=== PATIENT | male | born 1945 | race Caucasian/White ===

== ENCOUNTER 2017-05-26 20:43 | Inpatient (IN) | payer OTHER ==
[~2017-05-26] VITALS: Ht 160 cm; Wt 63.8 kg
[2017-05-26 22:11] LABS: Basophils # (auto) 0.1 uL; Basophils % (auto) 0.5 % (0.0-2.0); Eosinophils # (auto) 0.1 uL; Eosinophils % (auto) 1.3 % (0.0-7.0); Hematocrit 47.7 % (41.0-53.0); Hemoglobin 16.2 g/dL (13.5-17.5); Lymphocytes # (auto) 2.6 uL; Lymphocytes % (auto) 24.6 % (10.0-50.0); Mean Corpuscular Hemoglobin 31.2 pg (28.0-32.0); Monocytes # (auto) 0.6 uL; Monocytes % (auto) 5.6 % (0.0-12.0); Neutrophils # (auto) 7.1 uL; Platelet Count (auto) 279 10^3/uL (140-450); Red Blood Cells 5.18 10^6/uL (4.5-5.90); Red Cell Distribution Width 13.7 % (11.8-14.3); White Blood Cell 10.4 10^3/uL (4.4-10.8)
[2017-05-26 22:27] LABS: Alanine Aminotransferase 207 U/L (16-61); Albumin 3.5 g/dL (3.4-5.0); Alkaline Phosphatase 54 U/L (45-117); Anion Gap 7 (5-15); Aspartate Aminotransferase 143 U/L (15-37); BUN/Creatinine Ratio 19.6; Bilirubin, Total 0.5 mg/dL (0.2-1.0); Blood Alcohol < 3.0 mg/dL (0-5); Blood Urea Nitrogen 22 mg/dL (7-18); Calcium 8.8 mg/dL (8.5-10.1); Carbon Dioxide 25 mmol/L (21-32); Chloride 108 mmol/L (98-107); GFR African American 84 mL/min; GFR Non-African American 69 mL/min; Glucose 86 mg/dL (74-106); Potassium 4.4 mmol/L (3.5-5.1); Sodium 140 mmol/L (136-145); Total Protein 8.5 g/dL (6.4-8.2)
[2017-05-27] VITALS (8 sets, daily range): BP systolic 97–159; BP diastolic 59–80
[2017-05-27] MEDS ORDERED: WARFARIN SODIUM 5 MG TAB PO ONE
[2017-05-27 09:08] LABS: INR 2.08 (0.9-1.15); Partial Thromboplastin Time 38.5 sec (22.64-33.71); Prothrombin Time 22.8 sec (9.37-12.3)
[2017-05-27] MEDS ORDERED: LORazepam 2MG/ML-1ML VIAL IV PRN (09:30)
[2017-05-27] MEDS: CARVEDILOL 3.125 MG TAB PO SCH ×2 (09:47→22:36)
[2017-05-27] MEDS: LISINOPRIL 10 MG TAB PO SCH (09:48)
[2017-05-27] MEDS: LEVETIRACETAM 500 MG TAB PO SCH ×2 (10:03→22:36)
[2017-05-27] MEDS ORDERED: WARFARIN SODIUM 5 MG TAB PO SCH (17:00)
[2017-05-28 05:23] VITALS: BP 107/72
[2017-05-28 06:58] LABS: INR 2.08 (0.9-1.15); Partial Thromboplastin Time 30.5 sec (22.64-33.71); Prothrombin Time 22.8 sec (9.37-12.3)
[2017-05-28 09:00] VITALS: BP 115/70
[2017-05-28] MEDS: LEVETIRACETAM 500 MG TAB PO SCH ×2 (10:44→23:01)
[2017-05-28] MEDS: APIXABAN 5 MG TAB PO SCH ×2 (10:45→23:01)
[2017-05-28] MEDS: CARVEDILOL 3.125 MG TAB PO SCH ×2 (10:45→23:01)
[2017-05-28] MEDS: LISINOPRIL 10 MG TAB PO SCH (10:46)
[2017-05-28 13:00] VITALS: BP 120/69
[2017-05-28 17:13] VITALS: BP 116/68
[2017-05-28 22:00] VITALS: BP 129/78
[2017-05-29 05:10] VITALS: BP 119/65
[2017-05-29 07:57] VITALS: BP 132/70
[2017-05-29] MEDS: APIXABAN 5 MG TAB PO SCH ×2 (09:31→22:12)
[2017-05-29] MEDS: LEVETIRACETAM 500 MG TAB PO SCH ×2 (09:32→22:11)
[2017-05-29] MEDS: LISINOPRIL 10 MG TAB PO SCH (09:32)
[2017-05-29] MEDS: CARVEDILOL 3.125 MG TAB PO SCH ×2 (09:34→22:12)
[2017-05-29 12:01] VITALS: BP 110/73
[2017-05-29 16:55] VITALS: BP 129/83
[2017-05-29 22:00] VITALS: BP 130/74
[2017-05-30 06:07] VITALS: BP 146/94
[2017-05-30 08:19] VITALS: BP 134/82
[2017-05-30] MEDS: APIXABAN 5 MG TAB PO SCH ×2 (11:00→22:32)
[2017-05-30] MEDS: LISINOPRIL 10 MG TAB PO SCH (11:00)
[2017-05-30] MEDS: CARVEDILOL 3.125 MG TAB PO SCH ×2 (11:00→22:33)
[2017-05-30] MEDS: LEVETIRACETAM 500 MG TAB PO SCH ×2 (11:00→22:32)
[2017-05-30 12:08] VITALS: BP 97/58
[2017-05-30 16:48] VITALS: BP 91/57
[2017-05-30 22:00] VITALS: BP 131/78
[2017-05-31 05:00] VITALS: BP 119/72
[2017-05-31 09:00] VITALS: BP 112/64
[2017-05-31] MEDS: LISINOPRIL 10 MG TAB PO SCH (10:15)
[2017-05-31] MEDS: LEVETIRACETAM 500 MG TAB PO SCH ×2 (10:15→22:06)
[2017-05-31] MEDS: APIXABAN 5 MG TAB PO SCH ×2 (10:15→22:06)
[2017-05-31] MEDS: CARVEDILOL 3.125 MG TAB PO SCH ×2 (10:16→22:06)
[2017-05-31 13:00] VITALS: BP 102/67
[2017-05-31 17:00] VITALS: BP 94/65
[2017-05-31 21:30] VITALS: BP 122/72
[2017-06-01 04:55] VITALS: BP 99/65
[2017-06-01 07:50] VITALS: BP 114/66
[2017-06-01] MEDS: CARVEDILOL 3.125 MG TAB PO SCH ×2 (10:33→22:31)
[2017-06-01] MEDS: APIXABAN 5 MG TAB PO SCH ×2 (10:34→22:30)
[2017-06-01] MEDS: LEVETIRACETAM 500 MG TAB PO SCH ×2 (10:34→22:30)
[2017-06-01] MEDS: LISINOPRIL 10 MG TAB PO SCH (10:37)
[2017-06-01 11:41] VITALS: BP 116/81
[2017-06-01 16:38] VITALS: BP_SYST 10; BP_SYST 99; BP_DIAS 56; BP_DIAS 68
[2017-06-01 22:00] VITALS: BP 129/82
[2017-06-02 04:57] VITALS: BP 127/85
[2017-06-02 09:11] VITALS: BP 142/63
[2017-06-02] MEDS: APIXABAN 5 MG TAB PO SCH ×2 (10:05→20:57)
[2017-06-02] MEDS: CARVEDILOL 3.125 MG TAB PO SCH ×3 (10:06→21:01)
[2017-06-02] MEDS: LEVETIRACETAM 500 MG TAB PO SCH ×2 (10:06→20:57)
[2017-06-02] MEDS: LISINOPRIL 10 MG TAB PO SCH (10:07)
[2017-06-02 14:51] VITALS: BP 94/60
[2017-06-02 17:30] VITALS: BP 121/75
[2017-06-02 21:51] VITALS: BP 138/81
[2017-06-03 04:58] VITALS: BP 120/74
[2017-06-03 08:00] VITALS: BP 91/65
[2017-06-03] MEDS: APIXABAN 5 MG TAB PO SCH ×2 (10:45→21:37)
[2017-06-03] MEDS: LEVETIRACETAM 500 MG TAB PO SCH ×2 (10:45→21:37)
[2017-06-03] MEDS: LISINOPRIL 10 MG TAB PO SCH (10:46)
[2017-06-03 13:27] VITALS: BP 121/77
[2017-06-03 15:15] VITALS: BP 105/62
[2017-06-03 18:01] VITALS: BP 138/80
[2017-06-03] MEDS: CARVEDILOL 3.125 MG TAB PO SCH (21:38)
[2017-06-03 22:03] VITALS: BP 144/86
[2017-06-04 05:00] VITALS: BP 132/79
[2017-06-04 07:00] VITALS: BP 107/81
[2017-06-04] MEDS ORDERED: ACETAMINOPHEN/CODEINE#3 (300/30mg) TAB PO ONE (07:00)
[2017-06-04] MEDS: APIXABAN 5 MG TAB PO SCH ×2 (10:24→22:42)
[2017-06-04] MEDS: LEVETIRACETAM 500 MG TAB PO SCH ×2 (10:24→22:43)
[2017-06-04] MEDS: LISINOPRIL 10 MG TAB PO SCH (10:28)
[2017-06-04] MEDS: CARVEDILOL 3.125 MG TAB PO SCH ×2 (10:28→22:42)
[2017-06-04 13:00] VITALS: BP 80/55
[2017-06-04 17:00] VITALS: BP 94/63
[2017-06-04 21:50] VITALS: BP 102/71
[2017-06-05 05:09] VITALS: BP 120/77
[2017-06-05 09:21] VITALS: BP 116/66
[2017-06-05] MEDS: CARVEDILOL 3.125 MG TAB PO SCH ×2 (10:00→22:00)
[2017-06-05] MEDS: LISINOPRIL 10 MG TAB PO SCH (10:00)
[2017-06-05] MEDS: LEVETIRACETAM 500 MG TAB PO SCH ×2 (11:30→22:50)
[2017-06-05] MEDS: APIXABAN 5 MG TAB PO SCH ×2 (11:30→22:50)
[2017-06-05] MEDS ORDERED: PANTOPRAZOLE 40 MG TAB PO ONE (12:00)
[2017-06-05 12:48] VITALS: BP 77/51
[2017-06-05 17:40] VITALS: BP 101/67
[2017-06-05] MEDS: HYDROcodone-ACET 10/325MG TAB PO PRN (18:26)
[2017-06-05 22:00] VITALS: BP 105/71
[2017-06-06 05:30] VITALS: BP 124/75
[2017-06-06 09:00] VITALS: BP 128/85
[2017-06-06] MEDS: APIXABAN 5 MG TAB PO SCH ×2 (09:43→22:17)
[2017-06-06] MEDS: LISINOPRIL 10 MG TAB PO SCH (09:43)
[2017-06-06] MEDS: PANTOPRAZOLE 40 MG TAB PO SCH (09:43)
[2017-06-06] MEDS: LEVETIRACETAM 500 MG TAB PO SCH ×2 (09:43→22:17)
[2017-06-06] MEDS: CARVEDILOL 3.125 MG TAB PO SCH ×2 (09:43→22:17)
[2017-06-06 11:21] LABS: Urine Bacteria NONE SEEN /hpf (None Seen); Urine Blood TRACE /uL (Negative); Urine Mucus FEW (None Seen); Urine Specific Gravity 1.034 (1.001-1.035); Urine WBC 2 /hpf (0 - 3)
[2017-06-06 13:00] VITALS: BP 120/73
[2017-06-06 17:00] VITALS: BP 103/63
[2017-06-06] MEDS: HYDROcodone-ACET 10/325MG TAB PO PRN (20:21)
[2017-06-06 22:00] VITALS: BP 108/63
[2017-06-07 05:00] VITALS: BP 114/70
[2017-06-07 09:00] VITALS: BP 124/72
[2017-06-07] MEDS: LEVETIRACETAM 500 MG TAB PO SCH ×2 (09:38→21:56)
[2017-06-07] MEDS: CARVEDILOL 3.125 MG TAB PO SCH ×2 (09:38→21:56)
[2017-06-07] MEDS: PANTOPRAZOLE 40 MG TAB PO SCH (09:38)
[2017-06-07] MEDS: APIXABAN 5 MG TAB PO SCH ×2 (09:39→21:56)
[2017-06-07] MEDS: LISINOPRIL 10 MG TAB PO SCH (09:39)
[2017-06-07 13:19] VITALS: BP 88/59
[2017-06-07 17:05] VITALS: BP 92/54
[2017-06-07 22:00] VITALS: BP 138/68
[2017-06-08 06:00] VITALS: BP 122/79
[2017-06-08 08:00] VITALS: BP 122/70
[2017-06-08 08:16] VITALS: BP 122/70
[2017-06-08] MEDS: LEVETIRACETAM 500 MG TAB PO SCH ×2 (10:48→22:35)
[2017-06-08] MEDS: PANTOPRAZOLE 40 MG TAB PO SCH (10:49)
[2017-06-08] MEDS: APIXABAN 5 MG TAB PO SCH ×2 (10:49→22:35)
[2017-06-08] MEDS: CARVEDILOL 3.125 MG TAB PO SCH ×2 (10:49→22:00)
[2017-06-08] MEDS ORDERED: IOHEXOL 300 MG/ML 100ML BOTTLE IJ ONE (11:31)
[2017-06-08 11:52] VITALS: BP 113/77
[2017-06-08 16:40] VITALS: BP 109/69
[2017-06-08 22:00] VITALS: BP 117/78
[2017-06-09 05:33] VITALS: BP 117/75
[2017-06-09 09:13] VITALS: BP 122/72
[2017-06-09] MEDS: LEVETIRACETAM 500 MG TAB PO SCH ×2 (10:07→22:32)
[2017-06-09] MEDS: APIXABAN 5 MG TAB PO SCH ×2 (10:07→22:33)
[2017-06-09] MEDS: PANTOPRAZOLE 40 MG TAB PO SCH (10:08)
[2017-06-09] MEDS: CARVEDILOL 3.125 MG TAB PO SCH ×2 (10:09→22:32)
[2017-06-09 11:47] VITALS: BP 139/81
[2017-06-09 17:44] VITALS: BP 120/70
[2017-06-09 21:46] VITALS: BP_SYST 118; BP_SYST 142; BP_DIAS 71; BP_DIAS 84
[2017-06-10 05:00] VITALS: BP 125/75
[2017-06-10 07:38] VITALS: BP 131/76
[2017-06-10] MEDS: LEVETIRACETAM 500 MG TAB PO SCH ×2 (10:22→21:48)
[2017-06-10] MEDS: PANTOPRAZOLE 40 MG TAB PO SCH (10:22)
[2017-06-10] MEDS: CARVEDILOL 3.125 MG TAB PO SCH ×2 (10:22→21:49)
[2017-06-10] MEDS: APIXABAN 5 MG TAB PO SCH ×2 (10:22→21:48)
[2017-06-10 12:14] VITALS: BP 120/69
[2017-06-10] MEDS: HYDROcodone-ACET 10/325MG TAB PO PRN (15:25)
[2017-06-10 16:40] VITALS: BP 120/75
[2017-06-10 22:57] VITALS: BP 136/94
[2017-06-11 05:47] VITALS: BP 108/77
[2017-06-11 09:00] VITALS: BP 136/82
[2017-06-11] MEDS: APIXABAN 5 MG TAB PO SCH ×2 (09:19→23:00)
[2017-06-11] MEDS: CARVEDILOL 3.125 MG TAB PO SCH ×2 (09:19→22:57)
[2017-06-11] MEDS: LEVETIRACETAM 500 MG TAB PO SCH ×2 (09:19→23:01)
[2017-06-11] MEDS: PANTOPRAZOLE 40 MG TAB PO SCH (09:20)
[2017-06-11 13:00] VITALS: BP 104/67
[2017-06-11 17:00] VITALS: BP 124/74
[2017-06-11 21:37] VITALS: BP 131/68
[2017-06-11] MEDS: HYDROcodone-ACET 10/325MG TAB PO PRN (22:58)
[2017-06-12 04:35] VITALS: BP 101/66
[2017-06-12 08:30] VITALS: BP 115/63
[2017-06-12] MEDS: CARVEDILOL 3.125 MG TAB PO SCH ×2 (09:19→22:00)
[2017-06-12] MEDS: APIXABAN 5 MG TAB PO SCH ×2 (09:19→22:38)
[2017-06-12] MEDS: LEVETIRACETAM 500 MG TAB PO SCH ×2 (09:20→22:38)
[2017-06-12] MEDS: PANTOPRAZOLE 40 MG TAB PO SCH (09:22)
[2017-06-12 12:15] VITALS: BP 92/65
[2017-06-12 16:49] VITALS: BP 91/63
[2017-06-12 22:00] VITALS: BP 135/69
[2017-06-13 05:00] VITALS: BP 129/80
[2017-06-13 09:09] VITALS: BP 123/77
[2017-06-13] MEDS: PANTOPRAZOLE 40 MG TAB PO SCH (10:11)
[2017-06-13] MEDS: LEVETIRACETAM 500 MG TAB PO SCH ×2 (10:11→22:10)
[2017-06-13] MEDS: APIXABAN 5 MG TAB PO SCH ×2 (10:11→22:10)
[2017-06-13] MEDS: CARVEDILOL 3.125 MG TAB PO SCH ×2 (10:13→22:11)
[2017-06-13 12:45] VITALS: BP 137/71
[2017-06-13 13:00] VITALS: BP 133/73
[2017-06-13 17:00] VITALS: BP 116/73
[2017-06-13] MEDS: HYDROcodone-ACET 10/325MG TAB PO PRN (22:10)
[2017-06-13 22:25] VITALS: BP 114/70
[2017-06-14 05:07] VITALS: BP 92/56
[2017-06-14 08:00] VITALS: BP 107/62
[2017-06-14] MEDS: LEVETIRACETAM 500 MG TAB PO SCH (09:38)
[2017-06-14] MEDS: APIXABAN 5 MG TAB PO SCH ×2 (09:39→22:26)
[2017-06-14] MEDS: PANTOPRAZOLE 40 MG TAB PO SCH (09:39)
[2017-06-14] MEDS: CARVEDILOL 3.125 MG TAB PO SCH (09:39)
[2017-06-14 09:55] VITALS: BP 107/62
[2017-06-14 13:00] VITALS: BP 117/72
[2017-06-14 16:30] VITALS: BP 129/79
[2017-06-14 23:31] VITALS: BP 141/85
[2017-06-15 05:32] VITALS: BP 125/77
[2017-06-15 08:00] VITALS: BP 127/77
[2017-06-15 09:00] VITALS: BP 127/77
[2017-06-15] MEDS: APIXABAN 5 MG TAB PO SCH (09:26)
[2017-06-15] MEDS: PANTOPRAZOLE 40 MG TAB PO SCH (09:26)
[2017-06-15 12:47] LABS: Basophils # (auto) 0 uL; Basophils % (auto) 0.5 % (0.0-2.0); Eosinophils # (auto) 0.1 uL; Eosinophils % (auto) 1.5 % (0.0-7.0); Hematocrit 44.4 % (41.0-53.0); Lymphocytes # (auto) 2.2 uL; Lymphocytes % (auto) 26.1 % (10.0-50.0); Mean Corpuscular Hemoglobin 31.4 pg (28.0-32.0); Mean Corpuscular Hgb Conc. 33.7 g/dL (32.0-36.0); Mean Corpuscular Volume 93.2 fL (80.0-100.0); Monocytes # (auto) 0.6 uL; Monocytes % (auto) 6.7 % (0.0-12.0); Neutrophils # (auto) 5.5 uL; Neutrophils % (auto) 65.2 % (37.0-80.0); Nucleated Red Blood Cells % 0.2 %; Platelet Count (auto) 155 10^3/uL (140-450); Red Blood Cells 4.77 10^6/uL (4.5-5.90); Red Cell Distribution Width 13.8 % (11.8-14.3); White Blood Cell 8.4 10^3/uL (4.4-10.8)
[2017-06-15 13:00] VITALS: BP 126/71
[2017-06-15 13:55] LABS: BUN/Creatinine Ratio 15.2; Potassium 4.1 mmol/L (3.5-5.1)
[2017-06-15 13:56] LABS: Bilirubin, Total 0.4 mg/dL (0.2-1.0); Calcium 8.4 mg/dL (8.5-10.1); Total Protein 7.5 g/dL (6.4-8.2)
[2017-06-15 16:39] VITALS: BP 109/71
[2017-06-15 22:00] VITALS: BP 136/79
[2017-06-16 05:25] VITALS: BP 144/85
[2017-06-16] MEDS: HYDROcodone-ACET 10/325MG TAB PO PRN ×2 (08:22→15:43)
[2017-06-16 09:00] VITALS: BP 112/52
[2017-06-16] MEDS: PANTOPRAZOLE 40 MG TAB PO SCH (10:00)
[2017-06-16 13:00] VITALS: BP 117/79
[2017-06-16 17:00] VITALS: BP 112/67
[2017-06-16 22:00] VITALS: BP 134/87
[2017-06-17 05:00] VITALS: BP 111/73
[2017-06-17 08:00] VITALS: BP 110/78
[2017-06-17 08:40] VITALS: BP 110/78
[2017-06-17] MEDS: PANTOPRAZOLE 40 MG TAB PO SCH (10:00)
[2017-06-17 12:11] VITALS: BP 113/67
[2017-06-17 16:46] VITALS: BP 111/82
[2017-06-17 21:48] VITALS: BP 125/87
[2017-06-18 04:53] VITALS: BP 118/72
[2017-06-18 07:41] VITALS: BP 117/79
[2017-06-18] MEDS: PANTOPRAZOLE 40 MG TAB PO SCH (10:47)
[2017-06-18 11:49] VITALS: BP 125/78
[2017-06-18 16:59] VITALS: BP 118/72
[2017-06-18 21:45] VITALS: BP 130/78
[2017-06-19] VITALS (7 sets, daily range): BP systolic 120–137; BP diastolic 75–83
[2017-06-19] MEDS: PANTOPRAZOLE 40 MG TAB PO SCH (09:38)
[2017-06-20 05:00] VITALS: BP 100/60
[2017-06-20 09:00] VITALS: BP 129/89
[2017-06-20] MEDS: PANTOPRAZOLE 40 MG TAB PO SCH (10:06)
[2017-06-20 12:52] VITALS: BP 116/73
[2017-06-20 17:00] VITALS: BP 112/75
[2017-06-20 22:00] VITALS: BP 118/83
[2017-06-21 05:00] VITALS: BP 124/74
[2017-06-21 08:53] VITALS: BP 129/89
[2017-06-21] MEDS: PANTOPRAZOLE 40 MG TAB PO SCH (09:22)
[2017-06-21 13:25] VITALS: BP 118/73
[2017-06-21 17:04] VITALS: BP 134/78
[2017-06-21 22:00] VITALS: BP 128/80
[2017-06-22 05:00] VITALS: BP 108/68
[2017-06-22 08:30] VITALS: BP 120/77
[2017-06-22] MEDS: PANTOPRAZOLE 40 MG TAB PO SCH (10:44)
[2017-06-22 13:00] VITALS: BP 97/67
[2017-06-22 17:06] VITALS: BP 123/76
[2017-06-22 22:10] VITALS: BP 139/74
[2017-06-23 05:40] VITALS: BP 133/77
[2017-06-23 08:00] VITALS: BP 157/71
[2017-06-23 08:58] VITALS: BP 157/71
[2017-06-23] MEDS: PANTOPRAZOLE 40 MG TAB PO SCH (09:51)
[2017-06-23 13:00] VITALS: BP 133/71
[2017-06-23 17:00] VITALS: BP 118/75
[2017-06-23 21:57] VITALS: BP 124/79
[2017-06-24 04:45] VITALS: BP 124/78
[2017-06-24] MEDS: PANTOPRAZOLE 40 MG TAB PO SCH (08:54)
[2017-06-24 09:00] VITALS: BP 123/82
[2017-06-24 13:00] VITALS: BP_SYST 110; BP_SYST 154; BP_DIAS 69; BP_DIAS 89
[2017-06-24 17:35] VITALS: BP 118/73
[2017-06-24 22:11] VITALS: BP 126/80
[2017-06-25 04:55] VITALS: BP 126/77
[2017-06-25 08:35] VITALS: BP 128/80
[2017-06-25 12:23] VITALS: BP 115/78
[2017-06-25 17:18] VITALS: BP 118/71
[2017-06-25 20:00] VITALS: BP 118/68
[2017-06-25 22:21] VITALS: BP 118/68
[2017-06-26 05:06] VITALS: BP 99/63
[2017-06-26 09:12] VITALS: BP 123/73
[2017-06-26 12:23] VITALS: BP 99/67
[2017-06-26 17:43] VITALS: BP 114/72
[2017-06-26 20:00] VITALS: BP 125/78
[2017-06-26 22:21] VITALS: BP 125/78
[2017-06-27 05:25] VITALS: BP 113/69
[2017-06-27 08:00] VITALS: BP 141/86
[2017-06-27 09:00] VITALS: BP 141/86
[2017-06-27 13:00] VITALS: BP 122/79
[2017-06-27 17:00] VITALS: BP 119/74
[2017-06-27 22:00] VITALS: BP 134/82
[2017-06-28 05:00] VITALS: BP 131/80
[2017-06-28 08:00] VITALS: BP 129/80
[2017-06-28 13:00] VITALS: BP 117/77
[2017-06-28 16:43] VITALS: BP 110/69
[2017-06-28 22:23] VITALS: BP 104/62
[2017-06-29 05:51] VITALS: BP 114/71
[2017-06-29 09:15] VITALS: BP 114/71
[2017-06-29 12:05] VITALS: BP 108/80
[2017-06-29 17:12] VITALS: BP 110/73
[2017-06-29 22:22] VITALS: BP 146/92
[2017-06-30 04:58] VITALS: BP 133/77
[2017-06-30 09:29] VITALS: BP 120/70
[2017-06-30 13:05] VITALS: BP 104/63
[2017-06-30 17:10] VITALS: BP 93/64
[2017-06-30 20:00] VITALS: BP 125/72
[2017-06-30 21:55] VITALS: BP 125/72
[2017-07-01 05:00] VITALS: BP 116/77
[2017-07-01 09:07] VITALS: BP 117/69
[2017-07-01 20:00] VITALS: BP 120/71
[2017-07-01 23:00] VITALS: BP 120/71
[2017-07-02 05:48] VITALS: BP 126/75
[2017-07-02 08:30] VITALS: BP 123/79
[2017-07-02 09:00] VITALS: BP 123/79
[2017-07-02 13:00] VITALS: BP 110/70
[2017-07-02 17:29] VITALS: BP 131/77
[2017-07-02 22:00] VITALS: BP 147/78
[2017-07-03] VITALS (7 sets, daily range): BP systolic 112–134; BP diastolic 70–95
[2017-07-04 05:33] VITALS: BP 124/84
[2017-07-04 09:00] VITALS: BP 86/63
[2017-07-04 13:00] VITALS: BP 113/67
[2017-07-04 17:50] VITALS: BP 103/68
[2017-07-04 23:01] VITALS: BP 125/84
[2017-07-05] VITALS (7 sets, daily range): BP systolic 107–152; BP diastolic 62–99
[2017-07-06 06:00] VITALS: BP 129/81
[2017-07-06 09:00] VITALS: BP 137/76
[2017-07-06 13:00] VITALS: BP 134/91
[2017-07-06 17:00] VITALS: BP 116/76
[2017-07-06 21:37] VITALS: BP 146/79
[2017-07-07 05:23] VITALS: BP 130/83
[2017-07-07 07:55] VITALS: BP 143/83
[2017-07-07 11:47] VITALS: BP 139/77
[2017-07-07 16:27] VITALS: BP 106/73
[2017-07-07 22:00] VITALS: BP 118/74
[2017-07-08] VITALS (7 sets, daily range): BP systolic 94–127; BP diastolic 49–86
[2017-07-09 05:00] VITALS: BP 125/73
[2017-07-09 08:30] VITALS: BP 138/86
[2017-07-09 13:12] VITALS: BP 109/68
[2017-07-09 16:51] VITALS: BP 124/60
[2017-07-09 22:00] VITALS: BP 128/83
[2017-07-10 05:00] VITALS: BP 141/90
[2017-07-10 09:00] VITALS: BP 136/75
[2017-07-10 12:00] VITALS: BP 102/70
[2017-07-10 17:36] VITALS: BP 126/83
[2017-07-10 22:00] VITALS: BP 155/90
[2017-07-11 05:35] VITALS: BP 143/62
[2017-07-11 09:08] VITALS: BP 151/96
[2017-07-11 12:03] VITALS: BP 128/87
[2017-07-11 17:03] VITALS: BP 104/70
[2017-07-11 22:00] VITALS: BP 114/71
[2017-07-12 05:00] VITALS: BP 124/83
[2017-07-12 08:15] VITALS: BP 129/86
[2017-07-12 08:58] VITALS: BP 129/86
[2017-07-12 13:00] VITALS: BP 114/70
[2017-07-12 17:00] VITALS: BP 131/74
[2017-07-12 22:00] VITALS: BP 129/87
[2017-07-13 05:00] VITALS: BP 119/76
[2017-07-13 08:00] VITALS: BP 128/78
[2017-07-13 08:34] VITALS: BP 128/78
[2017-07-13 12:56] VITALS: BP 139/80
[2017-07-13 17:18] VITALS: BP 119/67
[2017-07-13 22:00] VITALS: BP 135/90
[2017-07-14 05:00] VITALS: BP 132/71
[2017-07-14 09:00] VITALS: BP 132/78
[2017-07-14 13:00] VITALS: BP 129/75
[2017-07-14 17:00] VITALS: BP 124/73
[2017-07-14 22:00] VITALS: BP 107/74
[2017-07-14 22:37] LABS: Albumin 3.1 g/dL (3.4-5.0); BUN/Creatinine Ratio 15.9; Calcium 8.6 mg/dL (8.5-10.1); Potassium 4.3 mmol/L (3.5-5.1)
[2017-07-14 22:41] LABS: Bilirubin, Total 0.2 mg/dL (0.2-1.0); Total Protein 7.5 g/dL (6.4-8.2)
[2017-07-14 22:45] LABS: Basophils # (auto) 0.1 uL; Basophils % (auto) 0.9 % (0.0-2.0); Eosinophils # (auto) 0.1 uL; Eosinophils % (auto) 1.1 % (0.0-7.0); Hematocrit 43.9 % (41.0-53.0); Hemoglobin 14.8 g/dL (13.5-17.5); Lymphocytes % (auto) 27.5 % (10.0-50.0); Mean Corpuscular Hemoglobin 31.4 pg (28.0-32.0); Mean Corpuscular Hgb Conc. 33.7 g/dL (32.0-36.0); Mean Corpuscular Volume 93.1 fL (80.0-100.0); Monocytes # (auto) 0.6 uL; Neutrophils # (auto) 6.9 uL; Neutrophils % (auto) 64.5 % (37.0-80.0); Nucleated Red Blood Cells % 0.1 %; Platelet Count (auto) 206 10^3/uL (140-450); Red Blood Cells 4.72 10^6/uL (4.5-5.90); Red Cell Distribution Width 14.4 % (11.8-14.3); White Blood Cell 10.8 10^3/uL (4.4-10.8)
[2017-07-15 04:36] VITALS: BP 129/82
[2017-07-15 09:00] VITALS: BP 150/101
[2017-07-15 13:00] VITALS: BP 127/80
[2017-07-15 17:00] VITALS: BP 133/81
[2017-07-15 22:00] VITALS: BP 118/75
[2017-07-16 05:00] VITALS: BP 118/70
[2017-07-16 09:00] VITALS: BP 122/68
[2017-07-16 13:00] VITALS: BP 106/66
[2017-07-16 20:00] VITALS: BP 115/76
[2017-07-16 23:02] VITALS: BP 115/76
[2017-07-17] VITALS (7 sets, daily range): BP systolic 116–139; BP diastolic 77–91
[2017-07-18] VITALS (7 sets, daily range): BP systolic 105–121; BP diastolic 61–79
[2017-07-19 05:37] VITALS: BP 113/62
[2017-07-19 08:00] VITALS: BP 146/79
[2017-07-19 09:00] VITALS: BP 146/79
[2017-07-19 13:00] VITALS: BP 120/83
[2017-07-19 17:00] VITALS: BP 116/79
[2017-07-19 22:00] VITALS: BP 127/81
[2017-07-20 05:00] VITALS: BP 137/92
[2017-07-20 09:00] VITALS: BP 132/78
[2017-07-20 13:43] VITALS: BP 128/75
[2017-07-20 17:10] VITALS: BP 135/88
[2017-07-20 22:20] VITALS: BP 129/88
[2017-07-21 04:45] VITALS: BP 126/87
[2017-07-21 09:00] VITALS: BP 133/85
[2017-07-21 12:43] VITALS: BP 118/71
[2017-07-21 16:51] VITALS: BP 132/74
[2017-07-21 22:04] VITALS: BP 131/86
[2017-07-22 05:23] VITALS: BP 126/76
[2017-07-22 07:37] VITALS: BP 131/88
[2017-07-22 11:49] VITALS: BP 119/66
[2017-07-22 17:05] VITALS: BP 127/76
[2017-07-22 22:00] VITALS: BP 149/86
[2017-07-23 05:00] VITALS: BP 124/76
[2017-07-23 09:23] VITALS: BP 130/78
[2017-07-23 12:30] VITALS: BP 106/75
[2017-07-23 17:31] VITALS: BP 114/57
[2017-07-23 22:35] VITALS: BP 121/72
[2017-07-24 05:21] VITALS: BP 121/67
[2017-07-24 07:54] VITALS: BP 124/79
[2017-07-24 11:02] VITALS: BP 125/79
[2017-07-24 16:54] VITALS: BP 133/75
[2017-07-24 22:05] VITALS: BP 118/78
[2017-07-25 04:49] VITALS: BP 131/99
[2017-07-25 09:16] VITALS: BP 145/69
[2017-07-25 13:21] VITALS: BP 119/86
[2017-07-25 16:54] VITALS: BP 126/85
[2017-07-25 21:45] VITALS: BP 135/91
[2017-07-26 05:31] VITALS: BP 135/97
[2017-07-26 09:00] VITALS: BP 111/64
[2017-07-26] MEDS ORDERED: ASPirin 81 mg TAB PO SCH (10:00)
[2017-07-26 13:00] VITALS: BP 126/77
[2017-07-26 22:00] VITALS: BP 108/95
[2017-07-27 06:00] VITALS: BP 115/75
== END 2017-07-27 05:00 | DRG 884 ==
LOC: ER 20:43 → EEVIPCON 20:44 → OVERFLOW 20:44 → EAST 05-27 00:28
PROVIDERS: ADMIT Internal Medicine; ATTEND Internal Medicine
DX: F01.50 Vascular dementia, unspecified severity, without behavioral disturbance, psychotic disturbance, mood disturbance, and anxiety (principal); B19.20 Unspecified viral hepatitis C without hepatic coma; E78.5 Hyperlipidemia, unspecified; H26.9 Unspecified cataract; J30.9 Allergic rhinitis, unspecified; I70.0 Atherosclerosis of aorta; R62.7 Adult failure to thrive; H35.9 Unspecified retinal disorder; N40.0 Benign prostatic hyperplasia without lower urinary tract symptoms; K21.9 Gastro-esophageal reflux disease without esophagitis; I10 Essential (primary) hypertension; Z86.73 Personal history of transient ischemic attack (TIA), and cerebral infarction without residual deficits; Z87.442 Personal history of urinary calculi; Z86.718 Personal history of other venous thrombosis and embolism; Z79.82 Long term (current) use of aspirin
CPT/HCPCS: 36415; 71010; 80053; 80320; 81001; 82140; 82962; 83605; 85025; 85610; 85730; 87081; 97110; 97116; 97163; 97530